=== PATIENT | male | born 2000 | race African-American/Black ===

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

== ENCOUNTER 2019-04-19 13:15 | Emergency (ER) | payer OTHER | END 2019-04-19 13:57 | disposition home or self-care (01) | LOC: BURERS 13:15 | DX: M62.838 Other muscle spasm (principal) | CPT/HCPCS: 99283 ==

== ENCOUNTER 2019-05-08 02:01 | Emergency (ER) | payer OTHER ==
--- NOTE | 2019-05-08 07:26 | RAD ---
CHEST 2 VIEWS: Date: 05/08/2019 The heart is normal in size and the lungs are clear. No infiltrate or effusion seen. The mediastinum appears normal. The trachea is midline. IMPRESSION: No acute thoracic findings. POS: HOME
== END 2019-05-08 03:05 | disposition home or self-care (01) ==
LOC: BURERS 02:01
DX: B34.9 Viral infection, unspecified (principal)
CPT/HCPCS: 71046; 87804; 99282

== ENCOUNTER 2024-07-01 19:32 | Emergency (ER) | payer OTHER, SELFPAY ==
[2024-07-01] MEDS ORDERED: Ketorolac Tromethamine 30 MG (1 mL) VIAL ONE (19:53)
== END 2024-07-01 20:22 | disposition home or self-care (01) ==
LOC: BURERS 19:32
DX: S40.011A Contusion of right shoulder, initial encounter (principal); M54.2 Cervicalgia; V49.9XXA Car occupant (driver) (passenger) injured in unspecified traffic accident, initial encounter
CPT/HCPCS: 72040; 96374; J1885